=== PATIENT | male | born 1980 | race Caucasian/White ===

== ENCOUNTER → 2022-05-19 | Outpatient (CLI) | payer OTHER | LOC: MHCPAIN 14:48 | DX: M47.817 Spondylosis without myelopathy or radiculopathy, lumbosacral region (principal); M53.3 Sacrococcygeal disorders, not elsewhere classified; M54.16 Radiculopathy, lumbar region | CPT/HCPCS: G0463 ==

== ENCOUNTER → 2022-06-28 | Outpatient (CLI) | payer OTHER | LOC: MHCPAIN 09:53 | DX: M47.816 Spondylosis without myelopathy or radiculopathy, lumbar region (principal); M54.16 Radiculopathy, lumbar region; M53.3 Sacrococcygeal disorders, not elsewhere classified | CPT/HCPCS: G0463; J1100; Q9967 ==